=== PATIENT | female | born 1945 | race Caucasian/White ===

== ENCOUNTER 2017-08-18 16:35 | Emergency (ER) | payer OTHER ==
[~2017-08-18] VITALS: Ht 157.5 cm; Wt 70.1 kg
[2017-08-18 17:38] LABS: ALBUMIN 4.2 g/dL (3.2-4.8); CHLORIDE 108 mEq/L (99-109); SODIUM 145 mEq/L (136-147)
[2017-08-18 17:41] LABS: GLUCOSE 100 mg/dL (70-99); TOTAL PROTEIN 6.9 g/dL (6.4-8.3)
[2017-08-18 17:43] LABS: TOTAL BILIRUBIN 0.3 mg/dL (0.0-1.0)
[2017-08-18 17:44] LABS: ALKALINE PHOSPHATASE 125 IU/L (3-129); CREATININE 0.7 mg/dL (0.6-1.3); GFR ESTIMATE (CALCULATED) > 59 mL/min/
[2017-08-18 17:45] LABS: UREA NITROGEN (BUN) 12 mg/dL (9-23)
[2017-08-18 17:47] LABS: ALT (GPT) 19 IU/L (3-49)
[2017-08-18 17:52] LABS: HEMATOCRIT 41.6 % (36.0-46.0); HEMOGLOBIN 13.6 G/DL (11.9-15.5); MCH 29.7 PG (29.0-34.0); MCHC 32.7 G/DL (30.0-36.0); MCV 90.8 FL (83-99); PLATELET COUNT 260 K/uL (156-360); RED BLOOD COUNT 4.58 M/uL (3.80-5.20)
[2017-08-18 17:55] LABS: AST (GOT) 19 IU/L (2-34)
[2017-08-18] MEDS ORDERED: TAMIFLU75 MG PO (18:01)
[2017-08-18] MEDS ORDERED: VENTOLIN HFA18 GM IH (18:02)
[2017-08-18 18:15] VITALS: BP 124/73
== END 2017-08-18 18:42 | disposition home or self-care (01) ==
LOC: EME 16:35
PROVIDERS: Nurse Practitioner Family
DX: J11.1 Influenza due to unidentified influenza virus with other respiratory manifestations (principal)
CPT/HCPCS: 71046; 80053; 85027; 99281; 99284